=== PATIENT | male | born 1965 | race Caucasian/White ===

== ENCOUNTER 2020-04-30 22:56 | Emergency (ER) | payer OTHER ==
[2020-04-30 23:10] VITALS: BP 152/96; PULSE 80; TEMP 97.9; BMI 24.0
[2020-04-30] MEDS ORDERED: CIPROFLOXACIN 250 MG TABLET (RESTRICTED TO ID) PO STA (23:45)
[2020-04-30] MEDS ORDERED: CIPROFLOXACIN 250 MG TABLET (RESTRICTED TO ID) PO ONE (23:56)
== END 2020-05-01 | disposition home or self-care (01) ==
LOC: FER 22:56
DX: R33.9 Retention of urine, unspecified (principal)
CPT/HCPCS: 99283-25

== ENCOUNTER 2021-02-15 12:35 | Emergency (ER) | payer OTHER ==
[2021-02-15 12:45] VITALS: BP 128/73; PULSE 52; TEMP 98.1; BMI 24.3
== END 2021-02-15 14:25 | disposition home or self-care (01) ==
LOC: FER 12:35
DX: S82.842A Displaced bimalleolar fracture of left lower leg, initial encounter for closed fracture (principal); W19.XXXA Unspecified fall, initial encounter; Y92.9 Unspecified place or not applicable
CPT/HCPCS: 73610-TC-LT-FY; 99284-25

== ENCOUNTER 2023-06-13 01:03 | Emergency (ER) | payer OTHER ==
[2023-06-13 01:11] VITALS: PULSE 94; RESP 18; TEMP 98.1; BMI 34.1
[2023-06-13 01:57] VITALS: BP 131/79
[2023-06-13 03:26] LABS: EPI CELLS 1 /uL (0-25.1); HYALINE CASTS 0 /uL (0-3.1); PH,URINE 5.5 (5.0-8.0); URINE APPEARANCE CLEAR; URINE BACTERIA 5 /uL (0-1359); URINE BILIRUBIN NEGATIVE (NEGATIVE); URINE COLOR YELLOW; URINE GLUCOSE (UA) NEGATIVE (NEGATIVE); URINE KETONE NEGATIVE (NEGATIVE); URINE LEUK ESTERASE NEGATIVE (NEGATIVE); URINE NITRITE NEGATIVE (NEGATIVE); URINE PROTEIN NEGATIVE (NEGATIVE); URINE RBC 8 /uL (0-23.9); URINE UROBILINOGEN 0.2 mg/dL (0.2-1.0); URINE WBC 2 /uL (0-25.8)
== END 2023-06-13 02:12 | disposition home or self-care (01) ==
LOC: FER 01:03
PROC: 0T9B70Z Drainage of Bladder with Drainage Device, Via Natural or Artificial Opening (ICD-10-PCS; principal; 2023-06-13)
DX: R33.9 Retention of urine, unspecified (principal); N40.1 Benign prostatic hyperplasia with lower urinary tract symptoms
CPT/HCPCS: 81003; 87086; 99283-25

== ENCOUNTER 2023-09-18 03:06 | Emergency (ER) | payer OTHER ==
[2023-09-18 03:25] VITALS: BP 168/89; PULSE 95; RESP 18; TEMP 98.1; BMI 34.1
== END 2023-09-18 03:42 | disposition home or self-care (01) ==
LOC: FER 03:06
PROC: 0T2BX0Z Change Drainage Device in Bladder, External Approach (ICD-10-PCS; principal; 2023-09-18)
DX: R33.9 Retention of urine, unspecified (principal)
CPT/HCPCS: 99283-25